=== PATIENT | female | born 1990 | race Caucasian/White ===

== ENCOUNTER 2024-07-07 08:16 | Emergency (ER) | payer OTHER ==
[~2024-07-07] VITALS: Ht 170.2 cm; Wt 84.0 kg
[2024-07-07] MEDS ORDERED: ALBUTEROL SULFATE 8 GM HOME.PACK INH ONE (08:45)
[2024-07-07] MEDS ORDERED: HYDROCODONE/ACETA 7.5/325 TAB PO ONE (08:45)
[2024-07-07] MEDS ORDERED: DOXYCYCLINE HYCLATE 100 MG CAP PO ONE (08:45)
[2024-07-07] MEDS ORDERED: INHALER, ASSIST DEVICES 1 EACH SPACER MISC ONE (08:45)
[2024-07-07] MEDS ORDERED: DOXYCYCLINE HY100 MG PO (09:33)
[2024-07-07] MEDS ORDERED: HYDROCODON-ACE1 EA11 PO (09:33)
[2024-07-07 09:41] VITALS: BP 126/74
== END 2024-07-07 09:47 | disposition home or self-care (01) ==
LOC: ED 08:16
DX: J20.9 Acute bronchitis, unspecified (principal)
CPT/HCPCS: 71045; 99283-25; A9270

== ENCOUNTER 2024-11-15 14:51 | Emergency (ER) | payer OTHER ==
[~2024-11-15] VITALS: Ht 170.2 cm; Wt 78.0 kg
[~2024-11-15 14:51] MED LIST: DOXYCYCLINE HY100 MG PO; HYDROCODON-ACE1 EA11 PO
[2024-11-15] MEDS ORDERED: AMPHETAMINE SAL20 MG PO (14:58)
--- OUTSIDE RECORDS SUMMARY | 2024-11-15 14:58 | XMS ---
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 E.D. VISIT COUNT (12 MO.) 2 [facility] TOTAL 3 NOTE: Visits indicate total known visits. ED/UCC VISIT TRACKING (12 MO.) 11/15/2024 14:52 [facility] TYPE: Emergency COMPLAINT: - BEE SING IN MOUTH 10/16/2024 02:50 Rafael CERVANTES TYPE: Emergency DIAGNOSES: - Cellulitis of left finger - Other psychoactive substance abuse, uncomplicated - Mouth/Lip Problem 07/07/2024 08:17 [facility] [place] TYPE: Emergency COMPLAINT: - COLD SYMPTOMS DIAGNOSES: - Acute bronchitis, unspecified - Cough, unspecified INPATIENT VISIT TRACKING (12 MO.) No inpatient visits to display in this time frame [email or web address]
[2024-11-15] MEDS ORDERED: EPIPEN AUTO INJECTOR 0.3 MG/0.3 ML ML IM ONE (15:15)
[2024-11-15] MEDS ORDERED: SODIUM CHLORIDE 0.9% 1,000 ML IV PRN (15:15)
[2024-11-15] MEDS ORDERED: DEXAMETHASONE SOD PHOS 10 MG/ML VIAL IV ONE (15:15)
[2024-11-15] MEDS ORDERED: PREDNISONE20 MG PO (17:21)
[2024-11-15] MEDS ORDERED: ALLERGY MEDICAT25 M1 PO (17:21)
[2024-11-15 17:48] VITALS: BP 115/75
== END 2024-11-15 17:49 | disposition home or self-care (01) ==
LOC: ED 14:51
DX: T63.481A Toxic effect of venom of other arthropod, accidental (unintentional), initial encounter (principal); T63.441A Toxic effect of venom of bees, accidental (unintentional), initial encounter; J39.2 Other diseases of pharynx; X58.XXXA Exposure to other specified factors, initial encounter
CPT/HCPCS: 96372; 96374; 96375; 99282-25; J0169; J1100; J1200; J7030